=== PATIENT | female | born 1995 | race Caucasian/White ===

== ENCOUNTER 2016-08-26 18:34 | Emergency (ER) | payer OTHER ==
[~2016-08-26] VITALS: Ht 172.7 cm; Wt 105.0 kg
[2016-08-26 18:40] VITALS: BP 176/87; PULSE 102; RESP 16; TEMP 98.9; O2SAT 100
--- NOTE | 2016-08-26 19:54 | PD ---
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 She has had intermittent bilateral lower pelvic cramping since. She saw her drawing hand today who did a pelvic exam, not an ultrasound, and told her the placement look fine and she was scheduled for an ultrasound one month away. The patient is concerned because the appointment is so far away and she does have some abdominal cramping. She came into the emergency department to get an ultrasound. She denies any fever, nausea, vomiting or diarrhea. [facility] Past Medical History Diminished Hearing: No Immunizations Current: Yes Tetanus Vaccination: Unknown Influenza Vaccination: No ?: Not LMP: IUD-08/06/2016 Social History Alcohol Use: No Tobacco Use: Yes Substance Use: No Allergies-Medications (Allergen,Severity, Reaction): Coded Allergies: No Known Allergies (Unverified , 08/26/16) Reported Meds & Prescriptions Reported Meds & Active Scripts Active No Active Prescriptions or Reported Medications Review of Systems Except as stated in HPI: all other systems reviewed are Neg Physical Exam Narrative GENERAL: The patient is alert, oriented 3 in minimal apparent distress with her suprapubic discomfort. Her vital signs show blood pressure 176/87 with a heart rate of 102 but otherwise normal. SKIN: Warm and dry. HEAD: Atraumatic. Normocephalic. EYES: Pupils equal and round. No scleral icterus. No injection or drainage. ENT: No nasal bleeding or discharge. Mucous membranes pink and moist. NECK: Trachea midline. No JVD. CARDIOVASCULAR: Regular rate and rhythm. No murmur appreciated. RESPIRATORY: No accessory muscle use. Clear to auscultation. Breath sounds equal bilaterally. GASTROINTESTINAL: Abdomen soft, with minimal discomfort to direct palpation in the midline suprapubic area, nondistended. Hepatic and splenic margins not palpable. No guarding or rebound is present. MUSCULOSKELETAL: No obvious deformities. No clubbing. No cyanosis. No edema. NEUROLOGICAL: Awake and alert. No obvious cranial nerve deficits. Motor grossly within normal limits. Normal speech. PSYCHIATRIC: Appropriate mood and affect; insight and judgment normal. Data Data Last Documented VS Vital Signs Date Time Temp Pulse Resp B/P Pulse Ox O2 Delivery O2 Flow Rate FiO2 08/26/16 20:48 85 18 139/75 100 Room Air 08/26/16 18:40 98.9 Orders Us Pelvis Comp Box Tender/Non-Preg (08/26/16 19:50) MDM Medical Decision Making Medical Screen Exam Complete: Yes Emergency Medical Condition: Yes Medical Record Reviewed: Yes Interpretation(s) The IUD is visualized totally within the endometrial cavity. Differential Diagnosis IUD in normal position, IUD migrated to abnormal position, IUD related discomfort, abscess formation and pelvis Narrative Course The IUD is in normal position. This apparently is IUD related pelvic discomfort. Physician Communication Physician Communication Follow-up with her drawing hand. The IUD has not migrated to an abnormal position. There is no evidence of abscess formation. Diagnosis Primary Impression: Pelvic pain Additional Impression: IUD (intrauterine device) in place Ruled Out: IUD migration Additional Instructions: *, Follow-up with your drawing hand as scheduled. The IUD is in normal position. Med/Other Pt SpecificInfo: Prescription(s) given Scripts Ibuprofen 600 Mg Ofl513 Mg PO TID #45 TAB Ref 0 Prov:Abdulkadir Escamilla MD 08/26/16 Disposition: 01 DISCHARGE HOME Condition: Stable Abdulkadir Escamilla MD Aug 26, 2016 19:54
[2016-08-26 20:48] VITALS: BP 139/75; PULSE 85; RESP 18; O2SAT 100
--- NOTE | 2016-08-26 21:30 | RADHPO ---
EXAM DATE/TIME: 08/26/2016 20:36 [facility] COMPARISON: No previous studies available for comparison. INDICATIONS : Cramping, IUD placement 08/04/2016. MEDICAL HISTORY : Pelvic pain. IUD placement, 08/04/2016. SURGICAL HISTORY : None. ENCOUNTER: Initial ACUITY: 1 day PAIN SCORE: 6/10 LOCATION: Bilateral pelvis MEASUREMENTS: UTERUS: 7.8 x 3.6 x 5.7 cm ENDOMETRIAL STRIPE: 8 mm RIGHT OVARY: 2.8 x 1.8 x 2.4 cm LEFT OVARY: 3.7 x 2.2 x 2.8 cm FINDINGS: UTERUS: The myometrium has homogeneous echotexture without mass. Portions of an IUD can be seen in the marycarmen l endometrial cavity. RIGHT OVARY: Ovary contains no mass or significant cystic lesion. LEFT OVARY: Ovary contains no mass or significant cystic lesion. MISCELLANEOUS: No free fluid. CONCLUSION: There is an IUD seen in the endometrial cavity. It is only visualized in the fundal endometrial cavit yDennis Barfield MD on August 26, 2016 at 21:25 Board Certified Radiologist. This report was verified electronically.
[2016-08-26 21:44] VITALS: BP 132/72; PULSE 86; RESP 18; O2SAT 100
[2016-08-26] MEDS ORDERED: IBUP-232 PO (21:44)
== END 2016-08-26 22:03 | disposition home or self-care (01) ==
LOC: PHED 18:34
DX: R10.2 Pelvic and perineal pain (principal); Z30.431 Encounter for routine checking of intrauterine contraceptive device; Z72.0 Tobacco use
CPT/HCPCS: 76856